=== PATIENT | male | born 1975 | race African-American/Black ===

== ENCOUNTER 2022-02-02 03:17 | Emergency (ER) | payer OTHER ==
[~2022-02-02] VITALS: Ht 180.3 cm; Wt 77.0 kg
[2022-02-02] MEDS ORDERED: LORAZEPAM 1MG TABLET PO ONE (03:45)
[2022-02-02 05:26] VITALS: BP 128/90
== END 2022-02-02 05:30 | disposition home or self-care (01) ==
LOC: ER 03:17
DX: F15.10 Other stimulant abuse, uncomplicated (principal); I10 Essential (primary) hypertension; F41.9 Anxiety disorder, unspecified; F20.9 Schizophrenia, unspecified; F17.290 Nicotine dependence, other tobacco product, uncomplicated; Z98.890 Other specified postprocedural states
CPT/HCPCS: 99283

== ENCOUNTER 2022-03-20 15:50 | Emergency (ER) | payer MEDICAID, OTHER ==
[~2022-03-20] VITALS: Ht 172.7 cm; Wt 77.0 kg
[2022-03-20 15:53] VITALS: BP 168/118
[2022-03-20] MEDS ORDERED: AMLO5TAB88 MT (18:29)
[2022-03-20] MEDS ORDERED: AMLODIPINE 5MG TABLET PO ONE (18:30)
== END 2022-03-20 18:45 | disposition home or self-care (01) ==
LOC: ER 15:50
DX: Z76.0 Encounter for issue of repeat prescription (principal); I10 Essential (primary) hypertension; F20.9 Schizophrenia, unspecified
CPT/HCPCS: 99283